=== PATIENT | female | born 2005 | race Hispanic/Latino ===

== ENCOUNTER 2024-02-19 16:21 | Observation (INO) | payer BC ==
[2024-02-19] MEDS ORDERED: Ondansetron PF 4 MG/2 ML Vial ONE (16:26)
[2024-02-19] MEDS ORDERED: LORazepam 2 MG/ML SYR.(CARPUJECT) ONE (16:34)
[2024-02-19 16:40] LABS: #Basophils 0.09 10x3/uL (0.0-0.2); %Basophils 0.8 % (0.0-1.0); %Eosinophils 1.6 % (0.0-10.0); %Lymphocytes 34.3 % (28.0-48.0); %Monocytes 6.3 % (0.0-4.0); %Neutrophils 55.4 % (31.0-61.0); Hematocrit 43.9 % (36.0-47.0); Hemoglobin 14.7 g/dL (12.0-16.0); Mean Corpuscular HGB CONC 33.5 g/dL (32.0-36.0); Mean Corpuscular Hemoglobin 31.1 pg (25.0-35.0); Mean Corpuscular Volume 92.8 fL (78.0-98.0); Mean Platelet Volume 8.7 fL (7.4-10.4); Platelet Count 361 10x3/uL (130-400); RBC Distribution Width 13.2 % (11.5-14.5); Red Blood Cell (RBC) Count 4.73 mill/uL (4.00-5.20)
[2024-02-19 16:48] LABS: BHCG - Serum Negative (NEGATIVE); Pregs Control Background? CLEAR/WHITE (CLR/WHITE); Pregs Control Bar Appear? YES (CONTROL BAR)
[2024-02-19 17:01] LABS: ALT (SGPT) 15 U/L (8-55); AST (SGOT) 20 U/L (5-34); Acetaminophen Less than 10 mcg/mL (10.0-30.0); Albumin 4.3 g/dL (3.5-5.0); Alcohol Less than 10.0 mg/dL (Less than 10); Alkaline Phosphatase 65 U/L (40-100); Anion Gap 23 mmol/L (10-20); BUN (Urea Nitrogen) 19 mg/dL (7.0-18.7); Bilirubin, Total 0.7 mg/dL (0.2-1.2); CK (CPK) 117 U/L (29-168); Calc. Creatinine Clearance 0 mL/min (70-130); Calcium 10.1 mg/dL (7.8-10.44); Carbon Dioxide 16 mmol/L (22-29); Chloride 105 mmol/L (98-107); Estimated GFR 64; Glucose 246 mg/dL (70-105); Potassium 4.9 mmol/L (3.5-5.1); Protein, Total 8.3 g/dL (6.0-8.3); Salicylate Less than 8.0 mg/dL (15.0-30.0); Sodium 139 mmol/L (136-145)
[2024-02-19 17:04] LABS: Troponin I Less than 0.010 ng/mL (< 0.028)
[2024-02-19] MEDS ORDERED: Vancomycin 1 GM/200 ML (FROZEN) BAG ONE (18:52)
[2024-02-19] MEDS ORDERED: Cefepime 2 GM VIAL ONE (18:52)
[2024-02-19] MEDS ORDERED: Sodium Chloride 0.9% 100 ML ONE (18:52)
[2024-02-19 19:08] LABS: Base Excess -4.2 mEq/L (-2.0 to +3.0); Calcium, Ionized (venous) 1.18 mmol/L (1.16-1.32); Chloride (VBG) 106 mmol/L (98-106); Hematocrit-VBG 39 % (36.0-47.0); Hemoglobin (Hb) 13.4 g/dL (11.7-15.5); Potassium (VBG) 4.09 mmol/L (3.70-5.30); Sodium 141 mmol/L (133-146)
[2024-02-19 19:18] LABS: INR-International Normal Ratio 1.2; PTT 29.7 sec (22.9-36.1); Prothrombin Time 14.8 sec (12.0-14.7)
[2024-02-19 19:25] LABS: Acetaminophen Less than 10 mcg/mL (10.0-30.0); Alcohol Less than 10.0 mg/dL (Less than 10); Salicylate Less than 8.0 mg/dL (15.0-30.0)
[2024-02-19 20:50] LABS: Bilirubin Negative (Negative); Blood, Urine Negative (Negative); Glucose, Urine (Dipstick) Negative (Negative); Ketone, Urine Negative (Negative); Leukocyte Negative (Negative); Nitrite Negative (Negative); Protein, Urine (Dipstick) Negative (Neg-Trace); Urobilinogen 0.2 mg/dL (Less than 2)
[2024-02-19 21:00] LABS: Amphetamine Detected (NotDetected); Barbiturates Screen Not Detected (NotDetected); Benzodiazepine Screen Detected (NotDetected); Cocaine Metabolite Screen Not Detected (NotDetected); Methadone Not Detected (NotDetected); Methamphetamine Detected (NotDetected); Opiate Screen Not Detected (NotDetected); Oxycodone Screen Not Detected (NotDetected); Phencyclidine (PCP) Not Detected (NotDetected); THC/Cannabinoid Screen Detected (NotDetected); Tricyclic Screen Not Detected (NotDetected)
[2024-02-19 21:07] LABS: Clarity Clear (Clear)
[2024-02-19 21:24] LABS: Bacteria/HPF 4+ HPF (None Seen); CAUTI Indications for Culture Alt mental st,lethar; RBC/HPF 0-3 HPF (0-3); WBC/HPF 21-50 HPF (0-3)
[2024-02-19 21:36] LABS: Specific Gravity, Urine 1.022 (1.002-1.036)
[2024-02-19 21:38] LABS: Urine Culture Reflex Yes Yes
[2024-02-19] MEDS ORDERED: Ondansetron PF 4 MG/2 ML Vial IVP PRN (22:15)
[2024-02-19] MEDS ORDERED: Ondansetron ODT 4 MG TAB SL PRN (22:15)
[2024-02-19] MEDS ORDERED: Sodium Chloride 0.9% 1,000 ML IV SCH (22:15)
[2024-02-19] MEDS ORDERED: Lorazepam 2 MG/ML VIAL SLOW IVP PRN (22:24)
[2024-02-19 23:23] LABS: Troponin I 0.022 ng/mL (< 0.028)
[2024-02-20] MEDS: Acetaminophen 325 MG TAB PO PRN (00:27)
[2024-02-20] MEDS: Lactated Ringer's 1,000 ML IV SCH (00:29)
[2024-02-20 00:36] VITALS: BMI 18.0
[2024-02-20 01:43] LABS: Troponin I 0.018 ng/mL (< 0.028)
[2024-02-20 04:28] LABS: #Basophils 0.08 10x3/uL (0.0-0.2); %Basophils 0.6 % (0.0-1.0); %Eosinophils 2.1 % (0.0-10.0); %Lymphocytes 30.9 % (28.0-48.0); %Monocytes 12.3 % (0.0-4.0); %Neutrophils 53.7 % (31.0-61.0); Hematocrit 33.7 % (36.0-47.0); Hemoglobin 11.5 g/dL (12.0-16.0); Mean Corpuscular HGB CONC 34.1 g/dL (32.0-36.0); Mean Corpuscular Hemoglobin 31.1 pg (25.0-35.0); Mean Corpuscular Volume 91.1 fL (78.0-98.0); Mean Platelet Volume 8.8 fL (7.4-10.4); Platelet Count 264 10x3/uL (130-400); RBC Distribution Width 13.2 % (11.5-14.5)
[2024-02-20 04:37] LABS: Anion Gap 11 mmol/L (10-20); BUN (Urea Nitrogen) 14 mg/dL (7.0-18.7); Calc. Creatinine Clearance 93 mL/min (70-130); Calcium 8.7 mg/dL (7.8-10.44); Carbon Dioxide 22 mmol/L (22-29); Chloride 108 mmol/L (98-107); Estimated GFR 121; Glucose 89 mg/dL (70-105); Potassium 3.6 mmol/L (3.5-5.1); Sodium 137 mmol/L (136-145)
[2024-02-20 07:02] VITALS: BMI 18.0
[2024-02-20] MEDS: Nitrofurantoin Monohyd/M-Cryst 100 MG CAP PO SCH (08:58)
[2024-02-20] MEDS: Sodium Chloride 0.9% 1,000 ML IV SCH (08:58)
[2024-02-20 11:30] VITALS: BP 102/65; TEMP 99.4
== END 2024-02-20 13:18 | disposition home or self-care (01) ==
LOC: EDBD 16:21 → ERS 16:21 → 2NO 22:04 → INTOOBSV 22:04
PROVIDERS: ADMIT Family Medicine; ATTEND Family Medicine
DX: T50.901A Poisoning by unspecified drugs, medicaments and biological substances, accidental (unintentional), initial encounter (principal); R56.9 Unspecified convulsions; N39.0 Urinary tract infection, site not specified; D72.829 Elevated white blood cell count, unspecified; R00.0 Tachycardia, unspecified; J45.909 Unspecified asthma, uncomplicated; F90.9 Attention-deficit hyperactivity disorder, unspecified type; F41.9 Anxiety disorder, unspecified; G47.00 Insomnia, unspecified; F17.210 Nicotine dependence, cigarettes, uncomplicated
CPT/HCPCS: 36415; 71045; 80048; 80306; 80307; 81001; 82140; 82805; 83605; 84443; 84484; 84703; 85025; 85379; 85610; 85730; 87040; 87086; 93005; G0378; J0692; J2060; J2405; J3370-JW; J3490; J7050; J7120